=== PATIENT | female | born 1975 | race American Indian/Alaskan Native ===

== ENCOUNTER 2016-10-17 13:49 | Outpatient (CLI) | payer OTHER ==
--- NOTE | 2016-10-18 09:22 | Mammography Report ---
BILATERAL DIGITAL SCREENING MAMMOGRAM with CAD :10/17/16 13:49:00 CLINICAL: Baseline screening. FINDINGS: The breasts are heterogeneously dense and the density is sufficient to lower the sensitivity of mammography. No mass, architectural distortion or suspicious calcifications. IMPRESSION: No mammographic evidence of malignancy. BI-RADS CATEGORY: 2 = Benign RECOMMENDATION: Routine mammographic screening in one year. ACR BI-RADS MAMMOGRAPHIC CODES: 0 = Needs additional imaging evaluation; 1 = Negative; 2 = Benign; 3 = Probably benign; 4 = Suspicious; 5 = Malignant; 6 = Known biopsy-proven malignancy COMMENT: 1. Dense breast tissue, i.e., adenosis, fibrocystic changes, etc., may obscure an underlying neoplasm. 2. Approximately 10% of cancers are not detected with mammography. 3. A negative mammography report should not delay biopsy if a clinically suspicious mass is present. Patient follow-up letters are generated by our [employer] application.
== END 2016-10-17 13:50 | disposition home or self-care (01) ==
LOC: SPVWC 13:49
PROVIDERS: ATTEND Obstetrics & Gynecology
DX: Z12.31 Encounter for screening mammogram for malignant neoplasm of breast (principal)
CPT/HCPCS: 77067; G0202

== ENCOUNTER 2017-10-24 08:16 | Outpatient (CLI) | payer OTHER ==
--- NOTE | 2017-10-24 09:16 | Mammography Report ---
BILATERAL MAMMOGRAM with CAD: HISTORY: Cancer screening. Comparison study is dated October 17, 2016. FINDINGS: The breast tissue is extremely dense (>75% glandular). This may lower the sensitivity of mammography. No mass, distortion, suspicious calcification, or skin change is seen. IMPRESSION: Negative mammogram. There is no mammographic evidence of malignancy. RECOMMENDATION: Follow-up per ACS guidelines. BI-RADS CATEGORY: 1 = Negative ACR BI-RADS MAMMOGRAPHIC CODES: 0 = Needs additional imaging evaluation; 1 = Negative; 2 = Benign; 3 = Probably benign; 4 = Suspicious; 5 = Malignant; 6 = Known biopsy-proven malignancy COMMENT: 1. Dense breast tissue, i.e., adenosis, fibrocystic changes, etc., may obscure an underlying neoplasm. 2. Approximately 10% of cancers are not detected with mammography. 3. A negative mammography report should not delay biopsy if a clinically suspicious mass is present. COMMENT: Patient follow-up letters are generated in [employer].
== END 2017-10-24 08:17 | disposition home or self-care (01) ==
LOC: SPVWC 08:16
PROVIDERS: ATTEND Obstetrics & Gynecology
DX: Z12.31 Encounter for screening mammogram for malignant neoplasm of breast (principal)
CPT/HCPCS: 77067

== ENCOUNTER 2018-10-23 10:45 | Emergency (ER) | payer OTHER ==
[2018-10-23 11:04] VITALS: BP 139/86
[2018-10-23] MEDS ORDERED: DELTASONE PO ONE (11:41)
--- NOTE | 2018-10-23 11:44 | Emergency Department Report ---
Minor Respiratory - HPI Chief Complaint: Headache Stated Complaint: HEADACHE/BACK DISCOMFORT Time Seen by Provider: 10/23/18 11:15 Pain Location: Other (head) Severity: mild Minor Respiratory: Yes Able to Tolerate Fluids, No Rhinorrhea, No Sore Throat, No Ear Pain, No Cough, No Sick Contacts, No Hemoptysis, No Chest Pain, No Shortness of Breath, No Fever Other History: Pt is a well appearing 43 yo AA female who comes to ER with a several month history of a headache that comes and goes. It is across her head. she has gotten no answers from her pcp. no photophobia or vomiting. neuro intact. inc stress- has endoleak; she works; has children. also symptoms of sinus component. BP not elevated. ED Review of Systems ROS: Stated complaint: HEADACHE/BACK DISCOMFORT Other details as noted in HPI Comment: All other systems reviewed and negative Constitutional: denies: chills Eyes: denies: eye pain ENT: as per HPI, ear pain Respiratory: denies: no symptoms reported, orthopnea Cardiovascular: denies: dyspnea on exertion Endocrine: denies: flushing Gastrointestinal: denies: abdominal pain, vomiting Genitourinary: denies: dysuria Musculoskeletal: denies: back pain Skin: denies: rash Neurological: as per HPI, headache Psychiatric: as per HPI, anxiety ED Past Medical Hx - Past Medical History Previous Medical History?: No - Surgical History Hx Cholecystectomy: Yes - Family History Family history: no significant - Social History Smoking Status: Never Smoker Substance Use Type: None - Medications Home Medications: Home Medications Medication Instructions Recorded Confirmed Last Taken Type Azithromycin [Zithromax TAB] 250 mg PO QDAY #6 tablet 10/23/18 Unknown Rx Fluticasone [Flonase] 1 spray NS QDAY #1 bottle 10/23/18 Unknown Rx methylPREDNISolone [Medrol] 4 mg PO DAILY #1 tab.ds.pk 10/23/18 Unknown Rx Minor Respiratory Exam - Exam General: Vital signs noted. No distress. Alert and acting appropriately. HEENT: Yes Moist Mucous Membranes, Yes Frontal Tenderness, Yes Maxillary Tenderness, No Pharyngeal Erythema, No Pharyngeal Exudates, No Rhinorrhea, No Conjuctival Injection Ear: Both TM Erythema, Neither TM Bulge, Neither EAC Pain, Neither EAC Discharge Neck: Yes Supple, No Adenopathy Lungs: Yes Good Air Exchange, No Wheezes, No Ronchi, No Stridor, No Cough, No Labored Respirations, No Retractions, No Use of Accessory Muscles, No Other Abn ormal Lung Sounds Heart: Yes Regular, No Murmur Abdomen: Yes Peritoneal Signs, Yes Normal Bowel Sounds, No Tenderness Skin: No Rash, No Edema Neurologic: Alert and oriented, no deficits. Musculoskeletal: Unremarkable. ED Course Vital Signs 10/23/18 11:00 Temperature 98.6 F Pulse Rate 99 H Respiratory 16 Rate Blood Pressure 139/86 O2 Sat by Pulse 100 Oximetry ED Medical Decision Making - Medical Decision Making bp acceptable no focal neuro def see hpi will treat for sinus congestion educated on next steps - Differential Diagnosis chronic headache Critical care attestation.: If time is entered above; I have spent that time in minutes in the direct care of this critically ill patient, excluding procedure time. ED Disposition Clinical Impression: Sinus headache Disposition: TO HOME OR SELFCARE Is pt being admited?: No Does the pt Need Aspirin: No Condition: Stable Instructions: Sinusitis (ED), Tension Headache (ED) Additional Instructions: work on stress drink 2 gallon of water per day exercise daily meds as ordered here today follow up pcp referral below Dr Trent Frederick in [place] is also very good at listening to patient concerns. Prescriptions: Azithromycin [Zithromax TAB] 250 mg PO QDAY #6 tablet Fluticasone [Flonase] 1 spray NS QDAY #1 bottle methylPREDNISolone [Medrol] 4 mg PO DAILY #1 tab.ds.pk Referrals: PRIMARY CAREMD [Primary Care Provider] - 3-5 Days EDER ABREU MD [Staff Physician] - 3-5 Days Time of Disposition: 11:44
== END 2018-10-23 12:05 | disposition home or self-care (01) ==
LOC: ED 10:45
DX: R51 Headache (principal); G43.909 Migraine, unspecified, not intractable, without status migrainosus
CPT/HCPCS: 99282; J7512

== ENCOUNTER 2018-10-30 13:05 | Outpatient (CLI) | payer OTHER ==
--- NOTE | 2018-10-30 13:52 | Mammography Report ---
Bilateral mammogram: Compared to 10/24/17. Findings: Bilateral dense breast parenchyma. Focal new well-circumscribed density measuring 5 mm in diameter noted outer posterior right breast but no microcalcification. Normal axilla. Impression: Focal new density right breast. Recommend spot compression and sonographic examination. BI-RADS CATEGORY: 0 = Needs additional imaging evaluation ACR BI-RADS MAMMOGRAPHIC CODES: 0 = Needs additional imaging evaluation; 1 = Negative; 2 = Benign; 3 = Probably benign; 4 = Suspicious; 5 = Malignant; 6 = Known biopsy-proven malignancy COMMENT: 1. Dense breast tissue, i.e., adenosis, fibrocystic changes, etc., may obscure an underlying neoplasm. 2. Approximately 10% of cancers are not detected with mammography. 3. A negative mammography report should not delay biopsy if a clinically suspicious mass is present.
== END 2018-10-30 13:06 | disposition home or self-care (01) ==
LOC: SPVWC 13:05
PROVIDERS: ATTEND Obstetrics & Gynecology
DX: Z12.31 Encounter for screening mammogram for malignant neoplasm of breast (principal); Z90.49 Acquired absence of other specified parts of digestive tract
CPT/HCPCS: 77067